=== PATIENT | male | born 1990 | race Caucasian/White ===

== ENCOUNTER 2017-12-06 03:44 | Emergency (ER) | payer BC, OTHER ==
[2017-12-06 04:03] VITALS: O2SAT 97
[2017-12-06] MEDS ORDERED: Rocephin 1000 MG INJ IM ONE (04:07)
[2017-12-06] MEDS ORDERED: BACIGUENT PACKET TP ONE (04:08)
[2017-12-06] MEDS ORDERED: TORAdol 30 mg Injection IM ONE (04:08)
[2017-12-06] MEDS ORDERED: XYLOCAINE 1% HCL 20 ML MDV ONE (04:13)
[2017-12-06] MEDS ORDERED: BACIGUENT PACKET ONE (04:13)
[2017-12-06] MEDS ORDERED: Rocephin 1000 MG INJ ONE (04:13)
[2017-12-06] MEDS ORDERED: TORAdol 30 mg Injection ONE (04:13)
[2017-12-06 05:17] VITALS: BP 144/89; PULSE 114
--- NOTE | 2017-12-06 11:59 | ERPHSYRPT ---
- History of Present Illness Time Seen by Provider: 12/06/17 04:09 Source: patient Exam Limitations: no limitations Patient Subjective Stated Complaint: pt states he has an abcess on his rt arm. states his cat attacked him Triage Nursing Assessment: pt alert and oriented, answers questions approp. pt ambulatory with steady gait noted. respirations nonlabored wiht lungs cta. skin warm and dry. raised red area to inner rt forearm. red area surrounding approx 10x8cm. white area and black area on raised areas. Physician History: 26-year-old male came to the emergency room with the complaining of swelling on the right forearm. Patient states that she had a cat scratch 5 days ago, and in that area. He started having a swelling with erythema and pain. Swelling is about 5 x 5 cm in diameter, round, red, erythematous with 2 scratch martinez. Timing/Duration: day(s) (5 days ago) Allergies/Adverse Reactions: No Known Drug Allergies Allergy (Verified 12/06/17 04:04) Hx Tetanus, Diphtheria Vaccination/Date Given: No Hx Influenza Vaccination/Date Given: No Hx Pneumococcal Vaccination/Date Given: No Immunizations Up to Date: No - Review of Systems Constitutional: No Fever, No Chills Eyes: No Symptoms Ears, Nose, & Throat: No Symptoms Respiratory: No Cough, No Dyspnea Cardiac: No Chest Pain, No Edema, No Syncope Abdominal/Gastrointestinal: No Abdominal Pain, No Nausea, No Vomiting, No Diarrhea Genitourinary Symptoms: No Dysuria Musculoskeletal: No Back Pain, No Neck Pain Skin: Cellulitis, No Rash Neurological: No Dizziness, No Focal Weakness, No Sensory Changes Psychological: No Symptoms Endocrine: No Symptoms All Other Systems: Reviewed and Negative - Past Medical History Pertinent Past Medical History: No Neurological History: No Pertinent History ENT History: No Pertinent History Cardiac History: Hypertension Respiratory History: No Pertinent History Endocrine Medical History: No Pertinent History Musculoskeletal History: Degenerative Disk Disease GI Medical History: No Pertinent History History: No Pertinent History Psycho-Social History: Anxiety, Depression Male Reproductive Disorders: No Pertinent History - Past Surgical History Past Surgical History: No Neuro Surgical History: No Pertinent History Cardiac: No Pertinent History Respiratory: No Pertinent History Gastrointestinal: No Pertinent History Genitourinary: No Pertinent History Musculoskeletal: No Pertinent History Male Surgical History: No Pertinent History - Social History Smoking Status: Former smoker How long have you smoked: 10 Exposure to second hand smoke: No Drug Use: none Patient Lives Alone: No - Nursing Vital Signs Nursing Vital Signs: Initial Vital Signs Temperature 98.0 F 12/06/17 03:50 Pulse Rate 118 H 12/06/17 03:50 Respiratory Rate 18 12/06/17 03:50 Blood Pressure 182/113 12/06/17 03:50 O2 Sat by Pulse Oximetry 97 12/06/17 03:50 Pain Scale Pain Intensity 9 - Physical Exam General Appearance: no apparent distress, alert Eye Exam: PERRL/EOMI, eyes nml inspection Ears, Nose, Throat Exam: normal ENT inspection, TMs normal, pharynx normal, moist mucous membranes Neck Exam: normal inspection, non-tender, supple, full range of motion Respiratory Exam: normal breath sounds, lungs clear, No respiratory distress Cardiovascular Exam: regular rate/rhythm, normal heart sounds, normal peripheral pulses Gastrointestinal/Abdomen Exam: soft, normal bowel sounds, No tenderness, No mass Back Exam: normal inspection, normal range of motion, No CVA tenderness, No vertebral tenderness Extremity Exam: normal inspection, normal range of motion, pelvis stable Neurologic Exam: alert, oriented x 3, cooperative, normal mood/affect, nml cerebellar function, nml station & gait, sensation nml, No motor deficits Skin Exam: normal color, warm, dry, other (abscess 5x5 cms in diameter on right forearm), No rash Lymphatic Exam: No adenopathy SpO2: 97 Oxygen Delivery: Room Air - Course Nursing assessment & vital signs reviewed: Yes Ordered Tests: Medication Summary Discontinued Medications Generic Name Dose Route Start Last Admin Trade Name Freq PRN Reason Stop Dose Admin Bacitracin Zinc Confirm 12/06/17 04:13 Baciguent Packet Administered 12/06/17 04:14 Dose 1 gm .ROUTE .STK-MED ONE Ceftriaxone Sodium Confirm 12/06/17 04:13 Rocephin 1000 Mg Inj Administered 12/06/17 04:14 Dose 1,000 mg .ROUTE .STK-MED ONE Ketorolac Tromethamine Confirm 12/06/17 04:13 Toradol 30 Mg Injection Administered 12/06/17 04:14 Dose 60 mg .ROUTE .STK-MED ONE Lidocaine HCl Confirm 12/06/17 04:13 Xylocaine 1% Hcl 20 Ml Mdv Administered 12/06/17 04:14 Dose 2 ml .ROUTE .STK-MED ONE - Progress Progress: unchanged, pain not gone completely Counseled pt/family regarding: diagnosis, need for follow-up - Departure Time of Disposition: 04:23 Departure Disposition: Home Clinical Impression: Right forearm cellulitis Condition: Stable Critical Care Time: No Referrals: DOCTOR,NO FAMILY [Primary Care Provider] - Instructions: Wound Infection, Cellulitis (Skin Infection), Adult (DC), Cellulitis and Erysipelas (Skin Infections) Additional Instructions: YANA VILLANUEVA was seen on 12/06/17 n the Emergency Room. At that time you were treated for an emergent condition, during your visit Laboratory, Radiology and/or other procedures may have been ordered. It is very important that you follow-up with your Primary Care Physician NO FAMILY DOCTOR within the next 24-48 hours to review your Emergency Room visit and the final results of testing that was ordered. Some test results such as Urine Cultures, Blood Cultures, and other cultures if ordered will not be finalized for 24-48 hours. If you do not have a Primary Care Provider please call the medical records department at [phone] to obtain a copy of your results or you may sign into our patient portal to obtain these results by visiting us @ [email or web address] and completing the following steps: 1. Click on the Patient Portal link 2. Click the Patient Self Enrollment Link to complete the enrollment form and entering your 3. Once the enrollment form is completed you will receive an email with a temporary ID and password at the email address you provided. 4. Next choose a user name and password. Your user name must be at least 4 characters long and your password must be at least 4 characters long. 5. Choose a security question from the list and provide your answer to the question. If you already have signed into the Health Portal you may access your Health Care Information 10/02 by the following steps: 1. Login to our website @ [email or web address] 2. Enter your original user name and password. FAQS The [facility] Health Portal is an online tool that contains your Lab Results, Radiology Reports, Visit History, Discharge Instructions and Health Summary Lab and Radiology Results will not be available for 72 hours on the portal. The Portal is a secure site, passwords are encryted and URLs are re-written so they cannot be copied and pasted. You and authorized family members are the only ones who can access your Portal. Also there is a timeout feature that protects your information if you leave the Portal page open. If you have technical difficulty please use the Contact Us link on the page this will allow you to submit any questions you have regarding the Portal or you may contact the Medical Record Department at [phone]. Please follow the instructions given to you. Please take your medication as prescribed if given. If symptoms recur or get worse, come back to the emergency room if you cannot reach your primary care physician, or call your primary care physician for an appointment. Again if your symptoms get worse, come back to the emergency room. Thanks for visiting emergency room, and let us take care of you. Prescriptions: Mupirocin [Bactroban OINTMENT] 1 gm TOP BID #60 tube Cephalexin Mh 500 mg [Keflex 500 mg] 500 mg PO Q6H #40 capsule Naproxen 375 mg [Naprosyn 375 mg] 375 mg PO Q8H #30 tablet Naproxen 375 mg [Naprosyn 375 mg] 375 mg PO Q8H #30 tablet
== END 2017-12-06 04:45 | disposition home or self-care (01) ==
LOC: ED 03:44
DX: L03.113 Cellulitis of right upper limb (principal); W55.03XA Scratched by cat, initial encounter
CPT/HCPCS: 96372; 99283; J0696; J1885; A9270-GY

== ENCOUNTER 2019-07-10 10:33 | Observation (INO) | payer OTHER ==
--- NOTE | 2019-07-10 11:18 | ERPHSYRPT ---
- History of Present Illness Time Seen by Provider: 07/10/19 10:36 Patient Subjective Stated Complaint: Pt states "I have been really depressed and I have been thinking about killing myself. I have the rope already." Triage Nursing Assessment: Pt presented alert and oriented X 3, skin pwd PT ambulates with an upright steady gait, able to speak in clear full sentences. PT slightly hesitant with answers, controlled anger. Physician History: Patient is here today with a plan to kill himself. Patient states he would hang himself with a cord. He states he has already bought the cord. He states he had a friend kill himself one [address]. Patient states he has been feeling this way since yesterday. He states his fiance recently left him. 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 Timing/Duration: yesterday Severity of Symptoms-Max: moderate Severity of Symptoms-Current: moderate Suicidal thoughts: specific plan Allergies/Adverse Reactions: No Known Drug Allergies Allergy (Verified 12/06/17 04:04) Home Medications: No Reportable Medications [No Reported Medications] 07/10/19 [History] Hx Tetanus, Diphtheria Vaccination/Date Given: No Hx Influenza Vaccination/Date Given: No Hx Pneumococcal Vaccination/Date Given: No Immunizations Up to Date: Yes - Past Medical History Pertinent Past Medical History: No Neurological History: No Pertinent History ENT History: No Pertinent History Cardiac History: Hypertension Respiratory History: No Pertinent History Endocrine Medical History: No Pertinent History Musculoskeletal History: Degenerative Disk Disease GI Medical History: No Pertinent History History: No Pertinent History Psycho-Social History: Anxiety, Depression Male Reproductive Disorders: No Pertinent History - Past Surgical History Past Surgical History: No Neuro Surgical History: No Pertinent History Cardiac: No Pertinent History Respiratory: No Pertinent History Gastrointestinal: No Pertinent History Genitourinary: No Pertinent History Musculoskeletal: No Pertinent History Male Surgical History: No Pertinent History - Social History Smoking Status: Current every day smoker How long have you smoked: years Exposure to second hand smoke: Yes Drug Use: marijuana Patient Lives Alone: No - Review of Systems Constitutional: No Fever, No Chills Eyes: No Symptoms Ears, Nose, & Throat: No Symptoms Respiratory: No Cough, No Dyspnea Cardiac: No Chest Pain, No Edema, No Syncope Abdominal/Gastrointestinal: No Abdominal Pain, No Nausea, No Vomiting, No Diarrhea Genitourinary Symptoms: No Dysuria Musculoskeletal: No Back Pain, No Neck Pain Skin: No Rash Neurological: No Dizziness, No Focal Weakness, No Sensory Changes Psychological: Suicidal Ideations Endocrine: No Symptoms All Other Systems: Reviewed and Negative - Nursing Vital Signs Nursing Vital Signs: Initial Vital Signs Temperature 98.0 F 07/10/19 10:42 Pulse Rate 129 H 07/10/19 10:42 Respiratory Rate 20 07/10/19 10:42 Blood Pressure 155/109 07/10/19 10:42 O2 Sat by Pulse Oximetry 97 07/10/19 10:42 Pain Scale Pain Intensity 0 - Physical Exam General Appearance: no apparent distress Eyes, Ears, Nose, Throat Exam: normal ENT inspection, moist mucous membranes Neck Exam: normal inspection, non-tender, supple Respiratory Exam: normal breath sounds, lungs clear, No respiratory distress Cardiovascular Exam: regular rate/rhythm, No edema Gastrointestinal/Abdominal Exam: soft, No tenderness, No distention Extremities Exam: normal inspection, normal range of motion, No evidence of injury, No edema Current Suicidality: denies suicide plan Neurological Exam: alert, hydrodynamicist II-XII nml as tested, oriented x 3 Skin Exam: normal color, warm, dry, No rash SpO2: 97 Ordered Tests: Active Orders 24 hr Category Date Time Status ACETAMINOPHEN Stat Lab 07/10/19 11:10 Completed CBC W DIFF Stat Lab 07/10/19 11:10 Completed CMP Stat Lab 07/10/19 11:10 Completed ETHYL ALCOHOL Stat Lab 07/10/19 11:10 Completed ETHYL ALCOHOL Stat Lab 07/10/19 13:37 Completed ETHYL ALCOHOL Stat Lab 07/10/19 17:37 Received SALICYLATE Stat Lab 07/10/19 11:10 Completed UA W/RFX UR CULTURE Stat Lab 07/10/19 12:12 Completed Urine Triage Profile Routine Lab 07/10/19 12:12 Completed Lab/Rad Data: Laboratory Result Diagrams 07/10/19 11:10 07/10/19 11:10 Laboratory Results 07/10/19 07/10/19 07/10/19 Range/Units 13:37 12:12 12:12 WBC (4.0-10.5) K/mm3 RBC (4.1-5.6) M/mm3 Hgb (12.5-18.0) gm/dl Hct (42-50) % MCV (78-100) fl MCH (26-32) pg MCHC (32-36) g/dl RDW (11.5-14.0) % Plt Count (150-450) K/mm3 MPV (6-9.5) fl Gran % (36.0-66.0) % Eos # (Auto) (0-0.5) Absolute Lymphs (auto) (1.0-4.6) Absolute Monos (auto) (0.0-1.3) Lymphocytes % (24.0-44.0) % Monocytes % (0.0-12.0) % Eosinophils % (0.00-5.0) % Basophils % (0.0-0.4) % Absolute Granulocytes (1.4-6.9) Basophils # (0-0.4) Sodium (137-145) mmol/L Potassium (3.5-5.1) mmol/L Chloride (98-107) mmol/L Carbon Dioxide (22-30) mmol/L Anion Gap (5-15) MEQ/L BUN (9-20) mg/dL Creatinine (0.66-1.25) mg/dL Estimated GFR ML/MIN Glucose (74-106) mg/dL Calcium (8.4-10.2) mg/dL Total Bilirubin (0.2-1.3) mg/dL AST (17-59) U/L ALT (0-50) U/L Alkaline Phosphatase (38-126) U/L Serum Total Protein (6.3-8.2) g/dL Albumin (3.5-5.0) g/dL Urine Color YELLOW (YELLOW) Urine Appearance CLEAR (CLEAR) Urine pH 6.0 (5-6) Ur Specific [place] 1.017 (1.005-1.025) Urine Protein NEGATIVE (Negative) Urine Ketones NEGATIVE (NEGATIVE) Urine Blood NEGATIVE (0-5) Hussain/ul Urine Nitrite NEGATIVE (NEGATIVE) Urine Bilirubin NEGATIVE (NEGATIVE) Urine Urobilinogen NEGATIVE (0-1) mg/dL Ur Leukocyte Esterase NEGATIVE (NEGATIVE) Urine WBC (Auto) NONE SEEN (0-5) /HPF Urine RBC (Auto) NONE SEEN (0-2) /HPF U Epithel Cells (Auto) NONE (FEW) /HPF Urine Bacteria (Auto) NONE (NEGATIVE) /HPF Urine Mucus (Auto) SLIGHT (NEGATIVE) /HPF Urine Culture Reflexed NO (NO) Urine Glucose NEGATIVE (NEGATIVE) mg/dL Salicylates (2-20) mg/dL Urine Opiates Level NEGATIVE (NEGATIVE) Ur Methadone NEGATIVE (NEGATIVE) Acetaminophen (10-30) ug/ml Urine Barbiturates NEGATIVE (NEGATIVE) Ur Phencyclidine (PCP) NEGATIVE (NEGATIVE) Urine Amphetamine NEGATIVE (NEGATIVE) U Benzodiazepine Level NEGATIVE (NEGATIVE) Urine Cocaine NEGATIVE (NEGATIVE) Urine Marijuana (THC) POSITIVE (NEGATIVE) Ethyl Alcohol 207 H (0-10) mg/dL Slides for Path Review 07/10/19 07/10/19 Range/Units 11:10 11:10 WBC 13.1 H (4.0-10.5) K/mm3 RBC 5.02 (4.1-5.6) M/mm3 Hgb 16.0 (12.5-18.0) gm/dl Hct 46.6 (42-50) % MCV 92.8 (78-100) fl MCH 31.9 (26-32) pg MCHC 34.3 (32-36) g/dl RDW 13.0 (11.5-14.0) % Plt Count 368 (150-450) K/mm3 MPV 8.6 (6-9.5) fl Gran % 39.5 (36.0-66.0) % Eos # (Auto) 0.27 (0-0.5) Absolute Lymphs (auto) 6.72 H (1.0-4.6) Absolute Monos (auto) 0.90 (0.0-1.3) Lymphocytes % 51.1 H (24.0-44.0) % Monocytes % 6.8 (0.0-12.0) % Eosinophils % 2.1 (0.00-5.0) % Basophils % 0.5 (0.0-0.4) % Absolute Granulocytes 5.19 (1.4-6.9) Basophils # 0.06 (0-0.4) Sodium 142 (137-145) mmol/L Potassium 4.1 (3.5-5.1) mmol/L Chloride 103 (98-107) mmol/L Carbon Dioxide 26 (22-30) mmol/L Anion Gap 17.4 H (5-15) MEQ/L BUN 13 (9-20) mg/dL Creatinine 0.90 (0.66-1.25) mg/dL Estimated GFR > 60.0 ML/MIN Glucose 141 H (74-106) mg/dL Calcium 9.6 (8.4-10.2) mg/dL Total Bilirubin 0.70 (0.2-1.3) mg/dL AST 354 H (17-59) U/L ALT 725 H (0-50) U/L Alkaline Phosphatase 79 (38-126) U/L Serum Total Protein 9.3 H (6.3-8.2) g/dL Albumin 4.9 (3.5-5.0) g/dL Urine Color (YELLOW) Urine Appearance (CLEAR) Urine pH (5-6) Ur Specific Climax (1.005-1.025) Urine Protein (Negative) Urine Ketones (NEGATIVE) Urine Blood (0-5) Hussain/ul Urine Nitrite (NEGATIVE) Urine Bilirubin (NEGATIVE) Urine Urobilinogen (0-1) mg/dL Ur Leukocyte Esterase (NEGATIVE) Urine WBC (Auto) (0-5) /HPF Urine RBC (Auto) (0-2) /HPF U Epithel Cells (Auto) (FEW) /HPF Urine Bacteria (Auto) (NEGATIVE) /HPF Urine Mucus (Auto) (NEGATIVE) /HPF Urine Culture Reflexed (NO) Urine Glucose (NEGATIVE) mg/dL Salicylates < 1.0 L (2-20) mg/dL Urine Opiates Level (NEGATIVE) Ur Methadone (NEGATIVE) Acetaminophen < 10 L (10-30) ug/ml Urine Barbiturates (NEGATIVE) Ur Phencyclidine (PCP) (NEGATIVE) Urine Amphetamine (NEGATIVE) U Benzodiazepine Level (NEGATIVE) Urine Cocaine (NEGATIVE) Urine Marijuana (THC) (NEGATIVE) Ethyl Alcohol 258 H (0-10) mg/dL Slides for Path Review YES - Progress Progress: improved Progress Note: 07/10/19 11:18 We will obtain basic labs and psychiatric screening exam. 07/10/19 17:42 Patient does have elevation of etOH and liver enzymes. Most likely due to chronic alcohol use. Patient has no abdominal pain on physical exam. Therefore, less likely his gallbladder today. Patient placed in emergency group home due to danger to himself and active suicidal ideation. Patient will be transferred to [facility] for further psychiatric help. Counseled pt/family regarding: lab results, diagnosis - Departure Departure Disposition: Transfer (psych facility ) Clinical Impression: Suicidal ideation Condition: Stable Critical Care Time: No Referrals: DOCTOR,NO FAMILY [Primary Care Provider] -
[2019-07-10 11:29] LABS: Absolute Neutrophil Ct (ANC) 5.19 (1.4-6.9); BASOPHIL % 0.5 % (0.0-0.4); Basophil (Absolute #) 0.06 (0-0.4); Eosinophil % 2.1 % (0.00-5.0); Eosinophil (Absolute #) 0.27 (0-0.5); Hematocrit 46.6 % (42-50); Lymphocyte (Absolute #) 6.72 (1.0-4.6); Lymphocytes % 51.1 % (24.0-44.0); Mean Cell Volume 92.8 fl (78-100); Mean Corpuscular Hemoglobin 31.9 pg (26-32); Mean Corpuscular Hgb Concent. 34.3 g/dl (32-36); Mean Platelet Volume 8.6 fl (6-9.5); Monocytes % 6.8 % (0.0-12.0); Neutrophil % 39.5 % (36.0-66.0); Platelet Count 368 K/mm3 (150-450); Red Blood Count 5.02 M/mm3 (4.1-5.6); White Blood Count 13.1 K/mm3 (4.0-10.5)
[2019-07-10 11:56] LABS: ALBUMIN 4.9 g/dL (3.5-5.0); ALKALINE PHOSPHATASE 79 U/L (38-126); ANION GAP 17.4 MEQ/L (5-15); BLOOD UREA NITROGEN 13 mg/dL (9-20); CHLORIDE 103 mmol/L (98-107); Calcium 9.6 mg/dL (8.4-10.2); Carbon Dioxide 26 mmol/L (22-30); ETHYL ALCOHOL 258 mg/dL (0-10); Glucose 141 mg/dL (74-106); Potassium 4.1 mmol/L (3.5-5.1); SGOT/AST 354 U/L (17-59); SGPT/ALT 725 U/L (0-50); SODIUM 142 mmol/L (137-145); Total Protein 9.3 g/dL (6.3-8.2)
[2019-07-10 12:03] LABS: ACETAMINOPHEN < 10 ug/ml (10-30); SALICYLATE < 1.0 mg/dL (2-20)
[2019-07-10 12:25] LABS: Appearance CLEAR (CLEAR); Bilirubin NEGATIVE (NEGATIVE); Blood NEGATIVE Ery/ul (0-5); Glucose NEGATIVE (NEGATIVE); Ketones NEGATIVE (NEGATIVE); Leukocyte Esterase NEGATIVE (NEGATIVE); Mucus SLIGHT /HPF (NEGATIVE); Nitrite NEGATIVE (NEGATIVE); Protein,Urine Dip NEGATIVE (Negative); Specific Gravity 1.017 (1.005-1.025); Urobilinogen NEGATIVE mg/dL (0-1)
[2019-07-10 12:33] LABS: RBC NONE SEEN /HPF (0-2); WBC NONE SEEN /HPF (0-5)
[2019-07-10 12:37] LABS: Amphetamine,Urine NEGATIVE (NEGATIVE); Barbiturate,Urine NEGATIVE (NEGATIVE); Benzodiazepine,Urine NEGATIVE (NEGATIVE); Cocaine,Urine NEGATIVE (NEGATIVE); Methadone,Urine NEGATIVE (NEGATIVE); Opiate,Urine NEGATIVE (NEGATIVE); PCP,Urine NEGATIVE (NEGATIVE); THC,Urine POSITIVE (NEGATIVE)
[2019-07-10 15:36] LABS: Slide Review 1 YES
[2019-07-10] MEDS: Sodium Chloride 0.9% 1000 ML 1,000 ML IV SCH (21:33)
[2019-07-10] MEDS: NICODERM CQ 14 MG TOP SCH (21:34)
[2019-07-11 05:09] LABS: Absolute Neutrophil Ct (ANC) 4.52 (1.4-6.9); BASOPHIL % 0.5 % (0.0-0.4); Basophil (Absolute #) 0.04 (0-0.4); Eosinophil % 2.7 % (0.00-5.0); Eosinophil (Absolute #) 0.21 (0-0.5); Hemoglobin 14.7 gm/dl (12.5-18.0); Lymphocyte (Absolute #) 2.29 (1.0-4.6); Lymphocytes % 29.7 % (24.0-44.0); Mean Cell Volume 92.5 fl (78-100); Mean Corpuscular Hemoglobin 31.6 pg (26-32); Mean Corpuscular Hgb Concent. 34.2 g/dl (32-36); Monocyte (Absolute #) 0.64 (0.0-1.3); Monocytes % 8.3 % (0.0-12.0); Neutrophil % 58.8 % (36.0-66.0); Platelet Count 246 K/mm3 (150-450); Red Blood Count 4.65 M/mm3 (4.1-5.6); Red Cell Distribution Width 12.7 % (11.5-14.0); White Blood Count 7.7 K/mm3 (4.0-10.5)
[2019-07-11 05:15] LABS: ALBUMIN 4.5 g/dL (3.5-5.0); ALKALINE PHOSPHATASE 71 U/L (38-126); ANION GAP 12.6 MEQ/L (5-15); BLOOD UREA NITROGEN 13 mg/dL (9-20); CHLORIDE 99 mmol/L (98-107); Calcium 9.1 mg/dL (8.4-10.2); Carbon Dioxide 28 mmol/L (22-30); Creatinine 1 0.77 mg/dL (0.66-1.25); Glucose 94 mg/dL (74-106); Potassium 3.6 mmol/L (3.5-5.1); SGOT/AST 259 U/L (17-59); SGPT/ALT 550 U/L (0-50); SODIUM 136 mmol/L (137-145); Total Protein 8.5 g/dL (6.3-8.2)
[2019-07-11] MEDS ORDERED: FLUZONE QUAD 2019-2020 SYRINGE IM ONE (10:00)
[2019-07-11 17:25] LABS: ALBUMIN 4.5 g/dL (3.5-5.0); ALKALINE PHOSPHATASE 67 U/L (38-126); ANION GAP 13.4 MEQ/L (5-15); BLOOD UREA NITROGEN 14 mg/dL (9-20); CHLORIDE 100 mmol/L (98-107); Calcium 9.5 mg/dL (8.4-10.2); Carbon Dioxide 26 mmol/L (22-30); Creatinine 1 0.84 mg/dL (0.66-1.25); Glucose 113 mg/dL (74-106); Potassium 3.7 mmol/L (3.5-5.1); SGOT/AST 209 U/L (17-59); SGPT/ALT 499 U/L (0-50); SODIUM 136 mmol/L (137-145); Total Protein 8.5 g/dL (6.3-8.2)
--- NOTE | 2019-07-11 20:05 | PCM.HP ---
History of Present Illness - Chief Complaint Chief Complaint: Elevated Liver Enzymes History of Present Illness: is a 28 year old male who has Hx untreated hepatitis C. He was drinking and he and his fiance started arguing and they broke up.He kept drinking and smoked marijuana and became suicidal. Medications & Allergies Home Medications: Home Medication List No Reportable Medications [No Reported Medications] 07/10/19 [History Confirmed 07/10/19] Allergies/Adverse Reactions: Allergies Allergy/AdvReac Type Severity Reaction Status Date / Time No Known Drug Allergies Allergy Verified 12/06/17 04:04 - Past Medical History Past Medical History: No Neurological History: No Pertinent History ENT History: No Pertinent History Cardiac History: Hypertension Respiratory History: No Pertinent History Endocrine Medical History: No Pertinent History Musculoskelatal History: Degenerative Disk Disease GI Medical History: No Pertinent History History: No Pertinent History Pyscho-Social History: Anxiety, Depression Male Reproductive Disorders: No Pertinent History - Past Surgical History Past Surgical History: No Neuro Surgical History: No Pertinent History Cardiac History: No Pertinent History Respiratory Surgery: No Pertinent History GI Surgical History: No Pertinent History Genitourinary Surgical Hx: No Pertinent History Musculskeletal Surgical Hx: No Pertinent History Male Surgical History: No Pertinent History - Social History Smoking Status: Current every day smoker How long have you smoked: 1 yr Exposure to second hand smoke: No Alcohol: Occasionally Drug Use: marijuana - Physical Exam Vital Signs: Vital Signs - 24 hr Temp Pulse Resp BP Pulse Ox 07/11/19 16:00 98.4 F 72 18 07/11/19 12:00 98.6 F 72 18 142/92 96 07/11/19 08:00 98.2 F 73 16 142/96 98 07/11/19 04:00 98.3 F 98 H 20 172/102 98 07/11/19 00:01 91 H 07/11/19 00:00 97.9 F 91 H 20 149/78 94 L 07/10/19 20:45 98.1 F 84 20 144/83 Results - Labs Lab/Micro Results: Lab Results-Last 24 Hours 07/11/19 07/11/19 07/11/19 Range/Units 05:00 05:00 05:00 WBC 7.7 (4.0-10.5) K/mm3 RBC 4.65 (4.1-5.6) M/mm3 Hgb 14.7 (12.5-18.0) gm/dl Hct 43.0 (42-50) % MCV 92.5 (78-100) fl MCH 31.6 (26-32) pg MCHC 34.2 (32-36) g/dl RDW 12.7 (11.5-14.0) % Plt Count 246 (150-450) K/mm3 MPV 9.0 (6-9.5) fl Gran % 58.8 (36.0-66.0) % Eos # (Auto) 0.21 (0-0.5) Absolute Lymphs (auto) 2.29 (1.0-4.6) Absolute Monos (auto) 0.64 (0.0-1.3) Lymphocytes % 29.7 (24.0-44.0) % Monocytes % 8.3 (0.0-12.0) % Eosinophils % 2.7 (0.00-5.0) % Basophils % 0.5 (0.0-0.4) % Absolute Granulocytes 4.52 (1.4-6.9) Basophils # 0.04 (0-0.4) Sodium 136 L (137-145) mmol/L Potassium 3.6 (3.5-5.1) mmol/L Chloride 99 (98-107) mmol/L Carbon Dioxide 28 (22-30) mmol/L Anion Gap 12.6 (5-15) MEQ/L BUN 13 (9-20) mg/dL Creatinine 0.77 (0.66-1.25) mg/dL Estimated GFR > 60.0 ML/MIN Glucose 94 (74-106) mg/dL Lactic Acid 1.3 (0.4-2.0) Calcium 9.1 (8.4-10.2) mg/dL Total Bilirubin 1.10 (0.2-1.3) mg/dL AST 259 H (17-59) U/L ALT 550 H (0-50) U/L Alkaline Phosphatase 71 (38-126) U/L Serum Total Protein 8.5 H (6.3-8.2) g/dL Albumin 4.5 (3.5-5.0) g/dL 07/11/19 Range/Units 17:10 WBC (4.0-10.5) K/mm3 RBC (4.1-5.6) M/mm3 Hgb (12.5-18.0) gm/dl Hct (42-50) % MCV (78-100) fl MCH (26-32) pg MCHC (32-36) g/dl RDW (11.5-14.0) % Plt Count (150-450) K/mm3 MPV (6-9.5) fl Gran % (36.0-66.0) % Eos # (Auto) (0-0.5) Absolute Lymphs (auto) (1.0-4.6) Absolute Monos (auto) (0.0-1.3) Lymphocytes % (24.0-44.0) % Monocytes % (0.0-12.0) % Eosinophils % (0.00-5.0) % Basophils % (0.0-0.4) % Absolute Granulocytes (1.4-6.9) Basophils # (0-0.4) Sodium 136 L (137-145) mmol/L Potassium 3.7 (3.5-5.1) mmol/L Chloride 100 (98-107) mmol/L Carbon Dioxide 26 (22-30) mmol/L Anion Gap 13.4 (5-15) MEQ/L BUN 14 (9-20) mg/dL Creatinine 0.84 (0.66-1.25) mg/dL Estimated GFR > 60.0 ML/MIN Glucose 113 H (74-106) mg/dL Lactic Acid (0.4-2.0) Calcium 9.5 (8.4-10.2) mg/dL Total Bilirubin 1.50 H (0.2-1.3) mg/dL AST 209 H (17-59) U/L ALT 499 H (0-50) U/L Alkaline Phosphatase 67 (38-126) U/L Serum Total Protein 8.5 H (6.3-8.2) g/dL Albumin 4.5 (3.5-5.0) g/dL
[2019-07-11] MEDS: NICODERM CQ 14 MG TOP SCH (20:57)
[2019-07-11] MEDS: Prozac 20 MG PO SCH (21:02)
[2019-07-11] MEDS: Protonix 40MG Tablet PO SCH (21:02)
[2019-07-12 03:05] LABS: HEPATITIS A IGM Non Reactive (Non Reactive); HEPATITIS B VIRUS CORE TOT AB Non Reactive (Non Reactive); Hepatitis B Surface Antigen Non Reactive (Non Reactive)
[2019-07-12 06:38] LABS: Hemoglobin 14.1 gm/dl (12.5-18.0); Mean Cell Volume 93.2 fl (78-100); Mean Corpuscular Hgb Concent. 34.4 g/dl (32-36); Platelet Count 194 K/mm3 (150-450); Red Cell Distribution Width 12.4 % (11.5-14.0)
[2019-07-12 06:59] LABS: ALBUMIN 4.4 g/dL (3.5-5.0); ALKALINE PHOSPHATASE 63 U/L (38-126); ANION GAP 11.1 MEQ/L (5-15); BLOOD UREA NITROGEN 13 mg/dL (9-20); CHLORIDE 101 mmol/L (98-107); Calcium 9.6 mg/dL (8.4-10.2); Carbon Dioxide 28 mmol/L (22-30); Creatinine 1 0.83 mg/dL (0.66-1.25); Glucose 106 mg/dL (74-106); Potassium 3.8 mmol/L (3.5-5.1); SGOT/AST 170 U/L (17-59); SGPT/ALT 398 U/L (0-50); SODIUM 136 mmol/L (137-145); Total Protein 8.3 g/dL (6.3-8.2)
[2019-07-12 07:56] VITALS: BP 145/99; PULSE 80; O2SAT 95
[2019-07-12] MEDS: Sodium Chloride 0.9% 1000 ML 1,000 ML IV SCH (08:21)
[2019-07-12] MEDS: Protonix 40MG Tablet PO SCH (09:14)
[2019-07-12] MEDS: Prozac 20 MG PO SCH (09:14)
[2019-07-13 15:18] LABS: HEPATITIS C VIRUS ANTIBODY Weak Reactive (Non Reactive)
== END 2019-07-12 10:55 ==
LOC: ED 10:33 → ICU 20:25
PROVIDERS: ADMIT Family Medicine; ATTEND Family Medicine
DX: R94.5 Abnormal results of liver function studies (principal); R45.851 Suicidal ideations; I10 Essential (primary) hypertension; Z86.19 Personal history of other infectious and parasitic diseases
CPT/HCPCS: 36415; 80053; 80074; 80307; 81001; 83605; 85025; 85027; 93268; 99285; G0008; G0378; G0480; G0481; 90686; A9270-GY

== ENCOUNTER 2020-07-21 22:24 | Emergency (ER) | payer OTHER ==
[2020-07-21] MEDS ORDERED: MOTRIN 600 MG ONE (22:41)
[2020-07-21] MEDS ORDERED: MOTRIN 600 MG PO ONE (22:41)
[2020-07-22 00:36] VITALS: BP 154/97; PULSE 81; O2SAT 97
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
--- NOTE | 2020-07-22 08:42 | XRAY ---
Indication: Thumb pain following injury. Comparison: March 18, 2013. 3 view left hand now demonstrates mild 1st MCP degenerative changes with soft tissue swelling. Stable tiny 5th metacarpal head bony exostosis. No other bony, articular, or soft tissue abnormalities.
== END 2020-07-22 01:30 | disposition home or self-care (01) ==
LOC: ED 22:24
DX: S63.602A Unspecified sprain of left thumb, initial encounter (principal); Y04.0XXA Assault by unarmed brawl or fight, initial encounter
CPT/HCPCS: 29126; 73130; 99284; A9270-GY